=== PATIENT | female | born 1935 | race Caucasian/White ===

== ENCOUNTER 2016-11-09 08:54 | Day surgery (SDC) | payer MEDICARE ==
[~2016-11-09] VITALS: Ht 172.7 cm; Wt 121.5 kg
[~2016-11-09 08:54] MED LIST: ACETAMINOPHEN 325 MG TABLET PO PRN; CHOL20003 PO; DILT120C11 PO; EPHEDRINE 50 MG/ML, 1ML IVPush PRN; FENTANYL PF 100 MCG/2ML IV PRN; HYDR25TA6 PO; HYDROmorphone 1 MG/ML, 1ML IV PRN; LABETALOL 5MG/ML, 20ML IV PRN; LOSA100T6 PO; MAGN400T36 PO; METOCLOPRAMIDE 5 MG/ML, 2ML IV PRN; METOPROLOL 1 MG/ML, 5ML IV PRN; MULT-658 PO; ONDANSETRON 2MG/ML, 2ML IVPush PRN; OXYcodone 5 MG/5 ML ORAL.SOL UDC PO PRN; PRILOSEC PO; PROMETHAZINE 25 MG/ML, 1ML IV PRN; RANI150C PO; hydrALAzine 20 MG/ML, 1ML IV PRN
[2016-11-09 09:33] VITALS: BP 162/69
[2016-11-09] MEDS ORDERED: LACTATED RINGERS 1,000 ML IV SCH (09:41)
[2016-11-09] MEDS ORDERED: LIDOCAINE 1%, 2ML SQ PRN (10:00)
[2016-11-09] MEDS ORDERED: VASOPRESSIN 50 UNIT in SODIUM CHLORIDE 0.9% 247.5 ML IV PRN (10:30)
[2016-11-09] MEDS ORDERED: FENTANYL PF 250 MCG/5ML ONE (10:31)
[2016-11-09] MEDS ORDERED: MIDAZOLAM 1 MG/ML, 5ML ONE (10:31)
[2016-11-09] MEDS ORDERED: OCTREOTIDE IV SCH (12:00)
[2016-11-09] MEDS ORDERED: SODIUM CHLORIDE 0.9% IV SCH (12:00)
[2016-11-09] MEDS ORDERED: OCTREOTIDE LAR 20 MG IM ONE ×2 (12:30→13:15)
[2016-11-09] MEDS ORDERED: ROCURONIUM 10 MG/ML ONE (16:13)
[2016-11-09] MEDS ORDERED: PHENYLEPHRINE 10 MG/ML ONE (16:13)
[2016-11-09] MEDS ORDERED: CEFAZOLIN 1,000 MG ONE (16:13)
[2016-11-09] MEDS ORDERED: PROPOFOL 10 MG/ML, 20ML ONE (16:13)
[2016-11-09] MEDS ORDERED: ONDANSETRON 2MG/ML, 2ML ONE (16:13)
[2016-11-09] MEDS ORDERED: GLYCOPYRROLATE 0.2MG/1ML ONE (16:13)
== END 2016-11-09 15:40 | disposition home or self-care (01) ==
LOC: OUT 08:54
PROVIDERS: ATTEND Internal Medicine Gastroenterology
DX: K86.89 Other specified diseases of pancreas (principal); I10 Essential (primary) hypertension; K21.9 Gastro-esophageal reflux disease without esophagitis
CPT/HCPCS: 43238; 74000; 76001; J0690; J2250; J2353; J2354; J2370; J2405; J2704; J3010; J7050; J3490